=== PATIENT | female | born 1935 | race Caucasian/White ===

== ENCOUNTER 2019-11-02 09:45 | Outpatient (CLI) | payer MEDICARE ==
--- NOTE | 2019-11-02 10:58 | MMO ---
Bilateral MAMMO Bilat Screen [facility]. CLINICAL HISTORY: Patient is 84 years old and is seen for screening. The patient has no family history of breast cancer. The patient has no personal history of cancer. The patient has a history of right Excisional Biopsy in 1990 - benign. VIEWS: The views performed were: bilateral craniocaudal with tomosynthesis and bilateral mediolateral oblique with tomosynthesis. FILMS COMPARED: The present examination has been compared to prior imaging studies performed at [facility] on 12/24/2009, 12/06/2012, 12/13/2013 and 02/22/2015. This study has been interpreted with the assistance of computer-aided detection. MAMMOGRAM FINDINGS: There are scattered fibroglandular densities. There are no suspicious masses, suspicious calcifications, or new areas of architectural distortion. IMPRESSION: THERE IS NO MAMMOGRAPHIC EVIDENCE OF MALIGNANCY. A ROUTINE FOLLOW-UP MAMMOGRAM IN 1 YEAR IS RECOMMENDED. THE RESULTS OF THIS EXAM WERE SENT TO THE PATIENT. ACR BI-RADS Category 1 - Negative MAMMOGRAPHY NOTE: 1. A negative mammogram report should not delay a biopsy if a dominant of clinically suspicious mass is present. 2. Approximately 10% to 15% of breast cancers are not detected by mammography. 3. Adenosis and dense breasts may obscure an underlying neoplasm. Reported by: COMFORT RODRIGUEZ MD Electonically Signed: [id number]
--- NOTE | 2019-11-02 11:07 | BD ---
EXAM: DEXA bone density examination HISTORY: 84-year-old postmenopausal female for screening COMPARISON: None FINDINGS: L1--bone mineral density 1.066 g/sq cm; T score 0.7 L2--bone mineral density 1.178 g/sq cm; T score 1.4 L3--bone mineral density 1.192 g/sq cm; T score 1.0 L4--bone mineral density 1.150 g/sq cm; T score 0.8 Total L1-L4--bone mineral density 1.145 g/sq cm; T score 0.9 Left femoral neck--bone mineral density0.660; T score -1.7 Total proximal left femur--bone mineral density 0.826; T score -1.0 IMPRESSION: Osteopenia This patient has a 10 year WHO fracture risk of a major osteoporotic fracture of 14% and of a hip fracture of 3.8%.
== END 2019-11-02 09:46 | disposition home or self-care (01) ==
LOC: BICMAMMO 09:45
PROVIDERS: ATTEND Family Medicine Addiction Medicine
DX: Z12.31 Encounter for screening mammogram for malignant neoplasm of breast (principal); Z13.820 Encounter for screening for osteoporosis; M85.852 Other specified disorders of bone density and structure, left thigh; Z78.0 Asymptomatic menopausal state; Z91.89 Other specified personal risk factors, not elsewhere classified
CPT/HCPCS: 77063; 77067; 77080

== ENCOUNTER 2021-03-13 11:32 | Outpatient (CLI) | payer MEDICARE | END 2021-03-13 11:33 | disposition home or self-care (01) | LOC: BICMAMMO 11:32 | PROVIDERS: ATTEND Family Medicine Addiction Medicine | DX: Z12.31 Encounter for screening mammogram for malignant neoplasm of breast (principal); Z91.89 Other specified personal risk factors, not elsewhere classified | CPT/HCPCS: 77063; 77067 ==